=== PATIENT | female | born 1995 | race Caucasian/White ===

== ENCOUNTER 2017-02-01 06:13 | Emergency (ER) | payer MEDICAID, OTHER ==
[~2017-02-01] VITALS: Ht 172.7 cm; Wt 94.1 kg
[~2017-02-01 06:13] MED LIST: IBUP-232 PO; ORPH100T PO
[2017-02-01 06:19] VITALS: BP 133/86; PULSE 146; RESP 14; TEMP 98.3; O2SAT 99
[2017-02-01 06:44] VITALS: BP 119/69; PULSE 138; RESP 20; O2SAT 97
--- NOTE | 2017-02-01 06:48 | PD ---
HPI Chief Complaint: Pain: Acute or Chronic Time Seen by Provider: 06:32 Travel History International Travel<30 days: No Contact w/Intl Traveler<30days: No Traveled to known affect area: No History of Present Illness HPI The patient is a 21-year-old female that states she has had a cough for 2 days. She also has had chills and felt hot earlier tonight. Her main complaint is low back pain for 2 days, possibly aggravated by the cough. She denies any dysuria, frequency or urgency. She denies any nausea, vomiting or diarrhea. She states there is no possibility of . She denies any drug use and denies smoking. PFSH Past Medical History Hx Anticoagulant Therapy: No Autoimmune Disease: No Anxiety: No Depression: No Cardiovascular Problems: No Chemotherapy: No Cerebrovascular Accident: No Diabetes: No Diminished Hearing: No Gastrointestinal Disorders: Yes GERD: Yes Genitourinary: No Musculoskeletal: No Neurologic: No Psychiatric: No Respiratory: No Immunizations Current: Yes (UTD, PER DAD) Tetanus Vaccination: < 5 Years Influenza Vaccination: No ?: Not LMP: january Past Surgical History Cholecystectomy: Yes Hysterectomy: No Other Surgery: No Social History Alcohol Use: No Tobacco Use: No Substance Use: No Allergies-Medications (Allergen,Severity, Reaction): Coded Allergies: No Known Allergies (Unverified Adverse Reaction, Unknown, 02/01/17) Reported Meds & Prescriptions Reported Meds & Active Scripts Active Review of Systems Except as stated in HPI: all other systems reviewed are Neg Physical Exam Narrative GENERAL: The patient is alert, oriented 3 and slight apparent distress with her low back pain and cough. Her vital signs show pulse of 146 but otherwise normal. SKIN: Focused skin assessment warm/dry. No skin rash is noted. No needle tracks are noted. HEAD: Atraumatic. Normocephalic. EYES: Pupils equal and round. No scleral icterus. No injection or drainage. ENT: No nasal bleeding or discharge. Mucous membranes pink and moist. The throat shows no erythema, exudate nor abscess present. The tympanic membranes are clear. NECK: Trachea midline. No JVD. There is no meningismus present. CARDIOVASCULAR: Regular rate and rhythm. No murmur appreciated. RESPIRATORY: No accessory muscle use. Clear to auscultation. Breath sounds equal bilaterally. GASTROINTESTINAL: Abdomen soft, non-tender, nondistended. Hepatic and splenic margins not palpable. No guarding or rebound is present. No flank tenderness is present. MUSCULOSKELETAL: No obvious deformities. No clubbing. No cyanosis. No edema. I can completely reproduce her back pain by pressing on the musculature bilaterally on the low back, just above the buttocks. This tenderness is in the bilateral lumbosacral region. NEUROLOGICAL: Awake and alert. No obvious cranial nerve deficits. Motor grossly within normal limits. Normal speech. PSYCHIATRIC: Appropriate mood and affect; insight and judgment normal. Data Data Last Documented VS Vital Signs Date Time Temp Pulse Resp B/P (MAP) Pulse Ox O2 Delivery O2 Flow Rate FiO2 02/01/17 06:44 138 20 119/69 (86) 97 Room Air 02/01/17 06:19 98.3 Orders Orders Urinalysis - C+S If Indicated (02/01/17 06:32) Complete Blood Count With Diff (02/01/17 06:34) Basic Metabolic Panel (Bmp) (02/01/17 06:34) Group A Rapid Strep Screen (02/01/17 06:34) Chest, Pa & Lat (02/01/17 06:34) Ed Urine Pregnancytest Poc (02/01/17 06:34) Labs Laboratory Tests Test 02/01/17 06:35 [facility] Medical Decision Making Medical Screen Exam Complete: Yes Emergency Medical Condition: Yes Medical Record Reviewed: Yes Differential Diagnosis Pneumonia, viral upper respiratory infection, muscle strain, tachycardia from drug use-highly unlikely, sepsis Narrative Course It is now 0655 and the patient is transferred to Dr. Meier. Nadeem Snow MD Feb 01, 2017 06:48
[2017-02-01 06:52] LABS: BLOOD, URINE NEG (NEG); GLUCOSE,URINE NEG (NEG); KETONE, URINE NEG (NEG); NITRITE,URINE NEG (NEG)
--- NOTE | 2017-02-01 07:07 | PD ---
Physical Exam Narrative Received sign out from previous team to follow up lab work, CXR, rapid and reevaluate. 21yo F with no significant PMH presents to the ED with c/o cough, rhinorrhea, throat pain and right lower back pain for a few days. [place] warm this morning. Denies any chest pain, sob, vomiting, abdominal pain, focal weakness or numbness , trauma, IVDA, dysuria, hematuria or diarrhea. Pt took tylenol last night around 8pm with little relieve. Said her girlfriend is also sick. Pt is well appearing with no significant findings on physical exam except sinus tachycardia in the 120s. Back pain is very musculoskeletal and tender to palpation in right paraspinal muscle L4-L5. No focal neurologic deficits. Labs reviewed, no leukocytosis. WBC 11.2. BMP unremarkable. UA negative. Urine negative. Pt given NS IVF and HR is now in the 80s. Pt also given toradol and pain has resolved. Group A strep and influenza negative. Return precautions given. Data Data Last Documented VS Vital Signs Date Time Temp Pulse Resp B/P (MAP) Pulse Ox O2 Delivery O2 Flow Rate FiO2 02/01/17 07:30 113 16 02/01/17 06:44 119/69 (86) 97 Room Air 02/01/17 06:19 98.3 Orders Orders Urinalysis - C+S If Indicated (02/01/17 06:32) Complete Blood Count With Diff (02/01/17 06:34) Basic Metabolic Panel (Bmp) (02/01/17 06:34) Group A Rapid Strep Screen (02/01/17 06:34) Chest, Pa & Lat (02/01/17 06:34) Ed Urine Pregnancytest Poc (02/01/17 06:34) Influenzae A/B Antigen (02/01/17 07:02) Sodium Chlor 0.9% 1000 Ml Inj (Ns 1000 M (02/01/17 07:15) Ketorolac Inj (Toradol Inj) (02/01/17 07:15) Ondansetron Inj (Zofran Inj) (02/01/17 07:15) Strep Culture (Group A) (02/01/17 06:51) Ed Discharge Order (02/01/17 09:29) Labs Laboratory Tests Test 02/01/17 06:35 12/1/17 06:55 Urine Collection Type VOIDED Urine Color YELLOW Urine Turbidity CLEAR Urine pH 6.0 Urine Specific [place] 1.025 Urine Protein NEG mg/dL Urine Glucose (UA) NEG mg/dL Urine Ketones NEG mg/dL Urine Occult Blood NEG Urine Nitrite NEG Urine Bilirubin NEG Urine Leukocyte Esterase NEG Urine WBC 0-2 /hpf Urine Squamous Epithelial Cells 0-3 /hpf Microscopic Urinalysis Comment CULT NOT INDICATED White Blood Count 11.2 TH/MM3 Red Blood Count 4.97 MIL/MM3 Hemoglobin 14.4 GM/DL Hematocrit 45.0 % Mean Corpuscular Volume 90.4 FL Mean Corpuscular Hemoglobin 28.9 PG Mean Corpuscular Hemoglobin Concent 31.9 % Red Cell Distribution Width 12.7 % Platelet Count 361 TH/MM3 Mean Platelet Volume 7.6 FL Neutrophils (%) (Auto) 69.4 % Lymphocytes (%) (Auto) 17.0 % Monocytes (%) (Auto) 9.2 % Eosinophils (%) (Auto) 2.2 % Basophils (%) (Auto) 2.2 % Neutrophils # (Auto) 7.9 TH/MM3 Lymphocytes # (Auto) 1.9 TH/MM3 Monocytes # (Auto) 1.0 TH/MM3 Eosinophils # (Auto) 0.2 TH/MM3 Basophils # (Auto) 0.2 TH/MM3 CBC Comment DIFF FINAL Differential Comment Blood Urea Nitrogen 6 MG/DL Creatinine 0.71 MG/DL Random Glucose 116 MG/DL Calcium Level 9.2 MG/DL Sodium Level 139 MEQ/L Potassium Level 3.7 MEQ/L Chloride Level 104 MEQ/L Carbon Dioxide Level 25.1 MEQ/L Anion Gap 10 MEQ/L Estimat Glomerular Filtration Rate 106 ML/MIN [facility] Supervised Visit with BRENDA: No Diagnosis Primary Impression: Musculoskeletal back pain Patient Instructions: General Instructions Departure Forms: Tests/Procedures Additional Instruction: Please follow up with your primary care physician in 3-7 days. Return to the ED if symptoms worsen. Med/Other Pt SpecificInfo: Prescription(s) given Scripts Ibuprofen (Ibuprofen) 600 Mg Tab 600 MG PO Q8HR Y for PAIN for 5 Days, TAB 0 Refills Prov: Deisy Meier 02/01/17 Disposition: 01 DISCHARGE HOME Condition: Stable MeierDeisy DO Feb 01, 2017 07:07
[2017-02-01 07:09] LABS: AUTOMATED NEUTROPHIL # 7.9 TH/MM3 (1.8-7.7); BASOPHIL # 0.2 TH/MM3 (0-0.2); BASOPHIL % 2.2 % (0.0-2.0); EOSINOPHIL # 0.2 TH/MM3 (0-0.4); EOSINOPHIL % 2.2 % (0.0-4.0); LYMPHOCYTE # 1.9 TH/MM3 (1.0-4.8); MEAN CELL VOLUME 90.4 FL (80.0-100.0); MEAN CORPUSCULAR HEMOGLOBIN 28.9 PG (27.0-34.0); MEAN CORPUSCULAR HGB CONC 31.9 % (32.0-36.0); MONO % 9.2 % (0.0-8.0); NEUT % 69.4 % (16.0-70.0); PLATELET COUNT 361 TH/MM3 (150-450); RED BLOOD COUNT 4.97 MIL/MM3 (4.00-5.30); RED CELL DISTRIBUTION WIDTH 12.7 % (11.6-17.2); WHITE BLOOD COUNT 11.2 TH/MM3 (4.0-11.0)
[2017-02-01 07:14] LABS: HEMO FLAGS DIFF FINAL
[2017-02-01] MEDS ORDERED: ONDANSETRON HCL 4 MG/2 ML VIAL IV PUSH ONE (07:15)
[2017-02-01] MEDS ORDERED: KETOROLAC TROMETHAMINE 30 MG/ML (IVP) VIAL IV PUSH ONE (07:15)
[2017-02-01] MEDS ORDERED: SODIUM CHLOR 0.9% 1000 ML INJ 1,000 ML IV ONE (07:15)
[2017-02-01 07:18] LABS: COMMENT (UR) CULT NOT INDICATED; CULTURE IF INDICATED CULT NOT INDICATED; METHOD OF COLLECTION VOIDED; SQUAMOUS EPITHELIAL CELL URINE 0-3 /hpf (0-5); URINE COLOR YELLOW (YELLW/STRAW); WBC, URINE 0-2 /hpf (0-5)
[2017-02-01 07:24] LABS: POTASSIUM 3.7 MEQ/L (3.5-5.1)
[2017-02-01 07:27] LABS: BICARBONATE 25.1 MEQ/L (21.0-32.0)
--- NOTE | 2017-02-01 07:29 | RADRPT ---
EXAM DATE/TIME: 02/01/2017 06:50 [facility] COMPARISON: CHEST PA & LAT, January 04, 2015, 21:39. INDICATIONS : Cough. MEDICAL HISTORY : None. SURGICAL HISTORY : None. ENCOUNTER: Initial ACUITY: 3 days PAIN SCORE: 0/10 LOCATION: Bilateral chest FINDINGS: PA and lateral views of the chest demonstrate the lungs to be symmetrically aerated without evidence of mass, infiltrate or effusion. The cardiomediastinal contours are unremarkable. Osseous structure s are intact. CONCLUSION: Normal examination. Alla Jones MD on February 01, 2017 at 7:27 Board Certified Radiologist. This report was verified electronically.
[2017-02-01] MEDS ORDERED: IBUP-232 PO (09:29)
[2017-02-01 09:39] VITALS: BP 110/66
== END 2017-02-01 09:40 | disposition home or self-care (01) ==
LOC: PHED 06:13
DX: M54.5 Low back pain (principal); R05 Cough; R00.0 Tachycardia, unspecified; R07.0 Pain in throat; Z87.19 Personal history of other diseases of the digestive system
CPT/HCPCS: 71020; 80048; 81001; 84703; 85025; 87081; 87804; 87880; 96374; 96375; 99284; J1885; J2405; J7030

== ENCOUNTER 2017-06-04 22:48 | Emergency (ER) | payer MEDICAID, OTHER ==
[~2017-06-04] VITALS: Ht 175.3 cm; Wt 96.0 kg
[~2017-06-04 22:48] MED LIST changes: -ORPH100T PO
[2017-06-04 22:51] VITALS: BP 117/74; PULSE 124; RESP 14; TEMP 98.4; O2SAT 99
--- NOTE | 2017-06-05 00:21 | PD ---
HPI Chief Complaint: ENT Complaint Time Seen by Provider: 00:17 Travel History International Travel<30 days: No Contact w/Intl Traveler<30days: No Traveled to known affect area: No History of Present Illness HPI 21-year-old female presents to the emergency department by private transportation to care family for evaluation of throat pain for over 10 intensity. Patient is noted discomfort the past several days. Patient is taken Aleve. Patient denies other concerns or complaints. No earache no cough no congestion no sinus pressure drainage no chest pain or shortness of breath no nausea no vomiting no belly pain flank pain dysuria frequency urgency diarrhea myalgias or arthralgias. Patient denies any chronic medical conditions. Last period was 1 month ago and denies . PFSH Past Medical History Narrative Medical Negative past medical history; negative surgical history; no tobacco use: Nursing notes reviewed Hx Anticoagulant Therapy: No Autoimmune Disease: No Anxiety: No Depression: No Cardiovascular Problems: No Chemotherapy: No Cerebrovascular Accident: No Diabetes: No Diminished Hearing: No Gastrointestinal Disorders: Yes GERD: Yes Genitourinary: No Musculoskeletal: No Neurologic: No Psychiatric: No Respiratory: No Immunizations Current: Yes (UTD, PER DAD) Past Surgical History Cholecystectomy: Yes Hysterectomy: No Other Surgery: No Social History Alcohol Use: No Tobacco Use: No Substance Use: No Allergies-Medications (Allergen,Severity, Reaction): Coded Allergies: No Known Allergies (Unverified Adverse Reaction, Unknown, 06/05/17) Reported Meds & Prescriptions Reported Meds & Active Scripts Active Ibuprofen 800 Mg Tab 800 Mg PO Q8H PRN Amoxicillin 875 Mg Tab 875 Mg PO BID 10 Days Ibuprofen 600 Mg Tab 600 Mg PO Q8HR PRN 5 Days Review of Systems Except as stated in HPI: all other systems reviewed are Neg General / Constitutional: No: Fever HENT: Positive: Sore Throat, Congestion, No: Masses Cardiovascular: No: Chest Pain or Discomfort Respiratory: No: Shortness of Breath Gastrointestinal: No: Vomiting, Abdominal Pain Genitourinary: No: Dysuria Musculoskeletal: No: Myalgias, Arthralgias Skin: No Rash Neurologic: No: Weakness Psychiatric: No: Anxiety Hematologic/Lymphatic: No: Lymph Node Enlargement Physical Exam Narrative GENERAL: Well-developed well-nourished female no acute distress or respiratory distress SKIN: Warm and dry. HEAD: Normocephalic. EYES: No scleral icterus. No injection or drainage. ENT: Mucous membranes moist airways patent tonsillar edema erythema scant exudative change; bilateral tympanic membranes no redness dullness loss of landmarks or perforation. NECK: Supple, trachea midline. No JVD or lymphadenopathy. No meningismus no nuchal rigidity. CARDIOVASCULAR: Regular rate and rhythm without murmurs, gallops, or rubs. RESPIRATORY: Breath sounds equal bilaterally. No accessory muscle use. GASTROINTESTINAL: Abdomen soft, non-tender, nondistended. MUSCULOSKELETAL: No cyanosis, or edema. BACK: Nontender without obvious deformity. No CVA tenderness. Data Data Last Documented VS Vital Signs Date Time Temp Pulse Resp B/P (MAP) Pulse Ox O2 Delivery O2 Flow Rate FiO2 06/05/17 00:25 18 06/05/17 00:23 98.4 124 117/74 (88) 99 Orders Orders Group A Rapid Strep Screen (06/05/17 00:17) Strep Culture (Group A) (06/05/17 00:20) Amoxicillin (Trimox) (06/05/17 01:15) MDM Medical Decision Making Medical Screen Exam Complete: Yes Emergency Medical Condition: Yes Medical Record Reviewed: Yes Differential Diagnosis Pharyngitis tonsillitis viral syndrome sialadenitis; consider mono Narrative Course Rapid strep specimen collected Patient administered ibuprofen for discomfort and first dose of oral antibiotic Diagnosis Primary Impression: Acute pharyngitis Referrals: Primary Care Physician call for appointment Patient Instructions: General Instructions Additional Instructions: Increase fluid hydration Complete course of antibiotic as prescribed Return to the emergency department for any concerns or change in condition take acetaminophen as needed for fever 100.4F or greater May take ibuprofen/Advil/Motrin 800 mg as often as every 8 hours for pain associated with inflammation or fever 100.4F or greater Follow-up with your primary care provider Med/Other Pt SpecificInfo: Prescription(s) given Scripts Ibuprofen (Ibuprofen) 800 Mg Tab 800 MG PO Q8H Y for PAIN GREATER THAN 5, #12 TAB 0 Refills Prov: Chantelle Trujillo MD 06/05/17 Amoxicillin (Amoxicillin) 875 Mg Tab 875 MG PO BID for Infection for 10 Days, #20 TAB 0 Refills Prov: Chantelle Trujillo MD 06/05/17 Disposition: 01 DISCHARGE HOME Condition: Stable Chantelle Trujillo MD Jun 05, 2017 00:21
[2017-06-05 00:23] VITALS: BP 117/74; PULSE 124; RESP 18; TEMP 98.4; O2SAT 99
[2017-06-05] MEDS ORDERED: IBUP1TAB7 PO (00:25)
[2017-06-05] MEDS ORDERED: AMOX875T PO (00:25)
[2017-06-05 01:00] VITALS: BP 127/70; PULSE 84; RESP 18; O2SAT 97
[2017-06-05] MEDS ORDERED: AMOXICILLIN 875 MG TAB PO ONE (01:15)
[2017-06-05 01:29] VITALS: BP 104/61
== END 2017-06-05 01:47 | disposition home or self-care (01) ==
LOC: PHED 22:48
DX: J02.9 Acute pharyngitis, unspecified (principal); K21.9 Gastro-esophageal reflux disease without esophagitis
CPT/HCPCS: 87081; 87880; 99283